=== PATIENT | male | born 1955 | race Caucasian/White ===

== ENCOUNTER 2018-09-26 05:13 | Inpatient (IN) | payer OTHER ==
[~2018-09-26] VITALS: Ht 152.4 cm; Wt 45.4 kg
[2018-09-26 05:13] VITALS: BP 200/106
--- NOTE | 2018-09-26 05:13 | NUR ---
TRANSFERED FROM [facility] TO BED 9.
--- NOTE | 2018-09-26 05:13 | NUR ---
CELIA FROM [facility] WHILE IN BATHROOM DURING SYNCOPAL EPISODE AT 0430. PT REPORTED TO PARAMEDICS THAT HE HIT HIS HEAD. PT IS A/O X3. PT ANSWERS QUESTIONS BUT IS DIFFICULT TO UNDERSTAND AT TIMES. -- SMALL CONTUSION NOTED TO POSTERIOR SKULL. SKIN INTACT. -- PITTING PEDAL EDEMA +3 BILAT NOTED. -- ABDOMINAL DISTENTION NOTED. -- FISTUALA TO R ARM, 20 G TO LFA; C/D/I, PATENT, NO REDNESS. -- LIDOCAINE PATCH ON LEFT SHOULDER. PMH: SEIZURES, HTN, ESRD.
--- NOTE | 2018-09-26 05:37 | NUR ---
PT TO CT VIA MING BY [facility].
[2018-09-26] MEDS ORDERED: hydrALAZINE 20 MG/ML VIAL IVP ONE (06:00)
[2018-09-26] MEDS ORDERED: ONDA4TAB PO (06:07)
[2018-09-26] MEDS ORDERED: HYDR-5122 PO (06:07)
[2018-09-26] MEDS ORDERED: SUCR1TAB35 PO (06:07)
[2018-09-26] MEDS ORDERED: PRON INH (06:07)
[2018-09-26] MEDS ORDERED: HYDR100T79 PO (06:07)
[2018-09-26] MEDS ORDERED: ACET-2619 PO (06:07)
[2018-09-26] MEDS ORDERED: ISOS30TE68 PO (06:07)
[2018-09-26] MEDS ORDERED: FLEPED RC (06:07)
[2018-09-26] MEDS ORDERED: QUET100T PO (06:07)
[2018-09-26] MEDS ORDERED: BUDE0.5S NEB (06:07)
[2018-09-26] MEDS ORDERED: SEVE800T6 PO (06:07)
[2018-09-26] MEDS ORDERED: METO25TE2 PO (06:07)
[2018-09-26] MEDS ORDERED: PANT40EC PO (06:07)
[2018-09-26] MEDS ORDERED: SERT50TA PO (06:07)
[2018-09-26] MEDS ORDERED: CLON0.2T43 PO (06:07)
[2018-09-26] MEDS ORDERED: MSCON15 PO (06:07)
[2018-09-26] MEDS ORDERED: BEN50 PO (06:07)
[2018-09-26] MEDS ORDERED: LEVO0.0211 PO (06:07)
[2018-09-26] MEDS ORDERED: MAGN400S60 PO (06:07)
[2018-09-26] MEDS ORDERED: FERR325E14 PO (06:07)
[2018-09-26] MEDS ORDERED: PHEN100C14 PO (06:07)
[2018-09-26] MEDS ORDERED: BISA-213 RC (06:07)
[2018-09-26] MEDS ORDERED: SEN30 PO (06:07)
--- NOTE | 2018-09-26 06:20 | NUR ---
LABS DRAWN AT BEDSIDE BY RN
[2018-09-26 06:39] LABS: BASOPHILS % (AUTO) 0.3 % (0.0-2.0); EOSINOPHILS # (AUTO) 0.1 K/uL (0-0.4); EOSINOPHILS % (AUTO) 0.8 % (0.0-4.0); HEMATOCRIT 26.4 % (36-52); HEMOGLOBIN 8.8 g/dL (12.0-18.0); LYMPHOCYTES # (AUTO) 0.5 K/uL (2.0-11.5); LYMPHOCYTES % (AUTO) 6.8 % (20.5-51.1); MEAN CORPUSCULAR HEMOGLOBIN 32 pg (27-31); MEAN CORPUSCULAR HGB CONC 33 g/dL (33-37); MEAN CORPUSCULAR VOLUME 97.1 fL (80-94); MONOCYTES # (AUTO) 0.4 K/uL (0.8-1.0); MONOCYTES % (AUTO) 6.5 % (1.7-9.3); NEUTROPHILS # (AUTO) 5.8 K/uL (1.8-7.7); NEUTROPHILS % (AUTO) 85.6 % (42.2-75.2); PLATELET COUNT (AUTO) 356 K/uL (140-450); RED BLOOD CELL COUNT(AUTO) 2.72 MIL/uL (4.20-6.10); RED CELL DISTRIBUTION WIDTH 19.1 % (11.6-13.7); WHITE BLOOD COUNT (AUTO) 6.7 K/uL (4.8-10.8)
--- NOTE | 2018-09-26 06:46 | NUR ---
PT UNABLE TO VOID AT THIS TIME. ERMD NOTIFIED.
--- NOTE | 2018-09-26 07:05 | NUR ---
RECEIVED REPORT FROM HERNANDEZ LAUREANO
[2018-09-26 07:44] LABS: ANION GAP 18.2 (8-16); CARBON DIOXIDE 28.8 mmol/L (21-32)
[2018-09-26 07:45] LABS: CREATININE 6.3 mg/dL (0.7-1.3); TOTAL BILIRUBIN 0.5 mg/dL (0.0-1.0)
[2018-09-26 07:46] LABS: ALBUMIN 2.2 g/dL (3.4-5.0)
[2018-09-26] MEDS ORDERED: ACETAMINOPHEN 325 MG TAB PO ONE (08:10)
--- NOTE | 2018-09-26 08:28 | NUR ---
at bedside; pt will be admitted for dialysis. [facility] can not take pt in today 2 to booked appts.
[2018-09-26] MEDS ORDERED: ALBUTEROL 0.083% 2.5 MG/3 ML NEBU IH PRN (08:35)
[2018-09-26] MEDS ORDERED: diphenhydrAMINE 50 MG CAP PO SCH (08:35)
[2018-09-26] MEDS ORDERED: MAGNESIUM HYDROXIDE 2400 MG/30 ML UDC PO SCH (08:35)
[2018-09-26] MEDS ORDERED: ONDANSETRON 4 MG TAB PO PRN (08:35)
[2018-09-26] MEDS ORDERED: ACETAMINOPHEN 325 MG TAB PO SCH ×2 (08:35)
[2018-09-26] MEDS ORDERED: BISACODYL 10 MG SUPP RC PRN (08:35)
[2018-09-26] MEDS ORDERED: ALBUTEROL 0.083% 2.5 MG/3 ML NEBU INH SCH (08:35)
[2018-09-26] MEDS ORDERED: ACETAMINOPHEN 325 MG TAB PO PRN (08:35)
[2018-09-26] MEDS ORDERED: ONDANSETRON 4 MG/2 ML VIAL IVP PRN (08:35)
[2018-09-26] MEDS ORDERED: HYDROcodone/APAP 5/325 MG 1 TAB TAB PO PRN (08:35)
[2018-09-26] MEDS ORDERED: LORazepam 2 MG/ML VIAL IVP PRN (08:35)
[2018-09-26] MEDS ORDERED: SODIUM PHOSPHATE 118 ML ENEM RC PRN (08:35)
[2018-09-26] MEDS ORDERED: HYDROcodone/APAP 5/325 MG 1 TAB TAB PO SCH (08:35)
--- NOTE | 2018-09-26 10:12 | NUR ---
PT TAKEN TO TELE FLOOR BY RNS BRIAN AND TANIA
--- NOTE | 2018-09-26 10:20 | NUR ---
REPORT GIVEN TO SRIDEVI CERRATO
[2018-09-26 10:25] VITALS: BP 165/94
--- NOTE | 2018-09-26 10:30 | NUR ---
PT ARRIVED ON UNIT FROM ED. RECEIVED HAND OFF REPORT FROM ED NURSE. PERFORMED PT ASSESSMENT. PT IS RESTING IN BED WITH ALL SAFETY MEASURES IN PLACE
[2018-09-26] MEDS ORDERED: CINACALCET 30 MG TAB PO SCH (10:35)
[2018-09-26] MEDS ORDERED: BUDESONIDE 0.5 MG/2 ML NEBU INH SCH (10:35)
[2018-09-26] MEDS ORDERED: cloNIDine 0.1 MG TAB PO SCH (10:36)
[2018-09-26] MEDS ORDERED: FERROUS SULFATE 325 MG TABEC PO SCH (10:36)
[2018-09-26] MEDS ORDERED: METOPROLOL SUCCINATE 50 MG TABER PO SCH (10:39)
[2018-09-26] MEDS ORDERED: hydrALAZINE 25 MG TAB PO SCH (10:41)
[2018-09-26] MEDS ORDERED: SERTRALINE 50 MG TAB PO SCH (10:50)
[2018-09-26] MEDS ORDERED: SEVELAMER CARBONATE 800 MG TAB PO SCH (10:50)
[2018-09-26] MEDS ORDERED: QUEtiapine FUMARATE 100 MG TAB PO SCH (10:51)
[2018-09-26] MEDS ORDERED: LEVOTHYROXINE 0.025 MG TAB PO SCH (10:52)
[2018-09-26] MEDS ORDERED: PANTOPRAZOLE 40 MG TABEC PO SCH (10:54)
[2018-09-26] MEDS ORDERED: ISOSORBIDE MONONITRATE 30 MG TABER PO SCH (10:56)
--- NOTE | 2018-09-26 11:08 | NUR ---
PT ORIENTED TO ROOM AND FLOOR, POC REVIEWD, FALL PRECAUTION AND SZ PRECAUTION INITIATED. PT ORIENTED TO HIMSELF AND PLACE, BUT UNABLE TO ANSWER TIME OR SITUATION, SPEAKING OF UNRELATED SITUATIONS, APPEARS CONFUSED. PT WITH RIGHT FEMORAL MOHIT CATH, DRESSING INTACT, RIGHT UPPER ARM WITH DIALYSIS FISTULA BUT PT STATES IT NO LONGER WORKS, PINK BAND PLACED, LEFT FA WITH 20G IV FLUSHES WELL, SITE WNL.
[2018-09-26 11:26] VITALS: BP 161/100
[2018-09-26 11:42] LABS: APPEARANCE,URINE CLEAR (CLEAR); COLOR,URINE YELLOW (YELLOW)
[2018-09-26 11:43] LABS: BILIRUBIN,URINE NEGATIVE (NEGATIVE); BLOOD, URINE TRACE (NEGATIVE); PH,URINE 8.5 (5.0-9.0); UGLUCOSE TRACE (NEGATIVE)
[2018-09-26 11:44] LABS: LEUKOCYTE ESTERASE ,URINE NEGATIVE (NEGATIVE); NITRITE, URINE NEGATIVE (NEGATIVE); RBC,URINE 0-5 /HPF (0-5); WBC,URINE 0-5 /HPF (0-5)
[2018-09-26 12:00] VITALS: BP 161/100
--- NOTE | 2018-09-26 12:08 | NUR ---
PT RECIVIGN DIALYSIS, SLEEPING QUIETLY IN NAD, RESP EVEN UNLABORED.
[2018-09-26] MEDS: SEVELAMER CARBONATE 800 MG TAB PO SCH ×2 (12:15→17:14)
[2018-09-26 12:49] LABS: BARBITURATE, URINE NEG ng/ml (NEG <=200); BENZODIAZEPINE, URINE NEG ng/mL (NEG <=200); CANNABINOID, URINE NE ng/mL (NEG <=50); COCAINE, URINE NEG ng/mL (NEG <=300); OPIATE, URINE POS ng/mL (NEG <=2000); PHENCYCLIDINE SCREEN,URINE NEG ng/mL (NEG <=25)
[2018-09-26] MEDS: CINACALCET 30 MG TAB PO SCH ×2 (14:20→17:15)
--- NOTE | 2018-09-26 15:13 | NUR ---
PT RECEIVING DIALYSIS. DIALYSIS NURSE AT BEDSIDE WITH PT. PT HAS NO SIGNS OF DISTRESS
[2018-09-26 16:00] VITALS: BP 111/65
--- NOTE | 2018-09-26 16:05 | NUR ---
DIALYSIS FINISHED. 2.6L REMOVED PER DIALYSIS NURSE.
[2018-09-26] MEDS: AZITHROMYCIN 500 MG in DEXTROSE 5% 250 ML IV SCH (19:13)
--- NOTE | 2018-09-26 19:20 | NUR ---
HAND OF REPORT GIVEN TO ACUTE CARE NURSING ASSISTANT NURSE. IV ANTIBIOTICS HANGING AND RUNNING. JUST REPOSITIONED PT IN BED. IV INTACT PATENT AND INFUSING WELL.
--- NOTE | 2018-09-26 19:21 | NUR ---
REPORT RECEIVED FROM AM NURSE AT BEDSIDE. PT IN STABLE CONDITION. AAOX1. INTRODUCED SELF TO PT. BOARD UPDATED. NO COMPLAINTS OF PAIN. NO SOB ON 2L O2 VIA NC. AFEBRILE@98.2 DEGREES. IV SITE L FA 20G SL PATENT AND INTACT. PT HAS A RIGHT FEMORAL MOHIT CATH AND RIGHT AV SHUNT. RIGHT AV SHUNT NOT IN USE AT THIS TIME. BED LOCKED IN LOW POSITION. CALL BOWEN WITHIN REACH. SAFETY PRECAUTIONS IN PLACE. ALL NEEDS MET AT THIS TIME.
[2018-09-26 20:00] VITALS: BP 133/78
[2018-09-26] MEDS: SUCRALFATE 1 GM TAB PO SCH (20:07)
[2018-09-26] MEDS: cloNIDine 0.1 MG TAB PO SCH (20:07)
[2018-09-26] MEDS: MORPHINE TAB ER 15 MG TABER PO SCH (20:07)
[2018-09-26] MEDS: PHENYTOIN 100 MG CAPER PO SCH (20:08)
[2018-09-26] MEDS: METOPROLOL SUCCINATE 50 MG TABER PO SCH (20:08)
[2018-09-26] MEDS: hydrALAZINE 25 MG TAB PO SCH (20:08)
--- NOTE | 2018-09-26 20:08 | NUR ---
APRESOLINE, CARAFATE, CATAPRES, DILANTIN, FERROUS SULFATE, MS-CONTIN, AND TOPROLOL GIVEN PO. HEPARIN GIVEN SUBQ. PT TOLERATED WELL.
[2018-09-26] MEDS: FERROUS SULFATE 325 MG TABEC PO SCH (20:14)
[2018-09-26] MEDS ORDERED: MORPHINE TAB ER 15 MG TABER PO SCH (21:00)
[2018-09-26] MEDS: BUDESONIDE 0.5 MG/2 ML NEBU INH SCH (21:31)
--- NOTE | 2018-09-26 22:10 | NUR ---
PT SLEEPING IN BED. NO S/S OF DISTRESS NOTED. WILL CONTINUE TO MONITOR.
[2018-09-27] VITALS (8 sets, daily range): BP systolic 116–136; BP diastolic 61–79
--- NOTE | 2018-09-27 01:10 | NUR ---
PT SLEEPING COMFORTABLY IN BED. NO S/S OF DISTRESS NOTED. CHEST EXPANSION VISIBLE. WILL CONTINUE TO MONITOR.
--- NOTE | 2018-09-27 03:05 | NUR ---
NICOTINE PATCH APPLIED TO RIGHT UPPER ARM.
--- NOTE | 2018-09-27 04:25 | NUR ---
PT HAD A HUGE BM. PT STOOD UP AND WENT ALL OVER THE FLOOR. EVS CALLED IN TO CLEAN.
--- NOTE | 2018-09-27 05:44 | NUR ---
SYNTHROID AND PANTOPRAZOLE GIVEN PO. PT TOLERATED WELL.
[2018-09-27] MEDS ORDERED: PANTOPRAZOLE 40 MG TABEC PO SCH (06:30)
[2018-09-27] MEDS ORDERED: LEVOTHYROXINE 0.025 MG TAB PO SCH (06:30)
--- NOTE | 2018-09-27 07:05 | NUR ---
REPORT GIVEN TO AM NURSE AT BEDSIDE. PT IN STABLE CONDITION.
--- NOTE | 2018-09-27 07:08 | NUR ---
RECEIVED BEDSIDE REPORT FROM LEGAL PROCESS SPECIALIST NURSE. PT AWAKE AND APPEARS IN NO APPARENT DISTRESS.
[2018-09-27 07:10] LABS: BASOPHILS # (AUTO) 0.1 K/uL (0.00-0.22); BASOPHILS % (AUTO) 2.3 % (0.0-2.0); EOSINOPHILS % (AUTO) 0.3 % (0.0-4.0); HEMATOCRIT 24.5 % (36-52); HEMOGLOBIN 8.1 g/dL (12.0-18.0); LYMPHOCYTES # (AUTO) 0.6 K/uL (2.0-11.5); MEAN CORPUSCULAR HEMOGLOBIN 33 pg (27-31); MEAN CORPUSCULAR HGB CONC 33 g/dL (33-37); MEAN CORPUSCULAR VOLUME 98.2 fL (80-94); MONOCYTES # (AUTO) 0.4 K/uL (0.8-1.0); MONOCYTES % (AUTO) 7.2 % (1.7-9.3); NEUTROPHILS # (AUTO) 4.7 K/uL (1.8-7.7); NEUTROPHILS % (AUTO) 80.2 % (42.2-75.2); PLATELET COUNT (AUTO) 286 K/uL (140-450); RED BLOOD CELL COUNT(AUTO) 2.49 MIL/uL (4.20-6.10); RED CELL DISTRIBUTION WIDTH 19.4 % (11.6-13.7); WHITE BLOOD COUNT (AUTO) 5.8 K/uL (4.8-10.8)
[2018-09-27] MEDS: BUDESONIDE 0.5 MG/2 ML NEBU INH SCH (07:10)
[2018-09-27 07:35] LABS: ANION GAP 16.7 (8-16); CARBON DIOXIDE 24.1 mmol/L (21-32); POTASSIUM 3.8 mmol/L (3.5-5.1)
[2018-09-27 07:40] LABS: CREATININE 4.5 mg/dL (0.7-1.3)
--- NOTE | 2018-09-27 08:01 | NUR ---
CHECKED PTS VITALS. REPOSITIONED PT AND ASSISTED WITH BREAKFAST FOR PT. SEIZURE PRECAUTION PADS IN PLACE. FALL PRECAUTION PROTOCOL IN PLACE. CALL LIGHT WITHIN REACH. CLIENT APPEARS TO BE IN NO DISTRESS.
--- NOTE | 2018-09-27 08:55 | NUR ---
PT PRESSED CALLED TO ASK TO BE CHANGED, LARGE BM SOFT BROWN, PERICARE PROVIDED, BED BATH GIVEN, LINEN AND GOWN CHANGED, POSITION CHANGED, PT AWAKE ALERT, CONVERSING WITHOUT CONFUSION. ALL SAFETY MEASURES IN PLACE, WILL CONTINUE TO MONITOR.
[2018-09-27] MEDS: SEVELAMER CARBONATE 800 MG TAB PO SCH ×3 (08:59→17:19)
[2018-09-27] MEDS ORDERED: ISOSORBIDE MONONITRATE 30 MG TABER PO SCH (09:00)
[2018-09-27] MEDS: FERROUS SULFATE 325 MG TABEC PO SCH ×2 (09:00→20:17)
[2018-09-27] MEDS ORDERED: ASPIRIN 81 MG TAB.CHEW PO SCH (09:00)
[2018-09-27] MEDS ORDERED: CINACALCET 30 MG TAB PO SCH (09:00)
[2018-09-27] MEDS ORDERED: QUEtiapine FUMARATE 100 MG TAB PO SCH (09:00)
[2018-09-27] MEDS ORDERED: NICOTINE TRANSD SYS 21 MG/24 HR PATCH TD SCH (09:00)
[2018-09-27] MEDS ORDERED: SERTRALINE 50 MG TAB PO SCH (09:00)
[2018-09-27] MEDS: METOPROLOL SUCCINATE 50 MG TABER PO SCH ×2 (09:01→20:17)
[2018-09-27] MEDS: hydrALAZINE 25 MG TAB PO SCH ×2 (09:03→20:15)
[2018-09-27] MEDS: cloNIDine 0.1 MG TAB PO SCH ×2 (09:04→20:17)
[2018-09-27] MEDS: MORPHINE TAB ER 15 MG TABER PO SCH ×2 (09:15→20:18)
--- NOTE | 2018-09-27 09:52 | NUR ---
PATIENT HAS BEEN SCREENED AND CATEGORIZED MODERATE NUTRITION RISK. PATIENT WILL BE SEEN WITHIN 3-5 DAYS OF ADMISSION. 09/29/18-10/01/[address]
--- NOTE | 2018-09-27 10:45 | NUR ---
FREQUENT ROUNDING ON CLIENT. CLIENT ASLEEP IN BED. REPOSITIONED PT SO LEGS ARE NOT DANGLING OVER BED. PLACED 1 LOWER BED RAIL UP TO KEEP PT FROM DANGLING LEGS OVER BED
--- NOTE | 2018-09-27 12:45 | NUR ---
REPOSITIONED CLIENT. ASSESSED VITALS AND ASSISTED THE PT WITH LUNCH. CALLED FNS FOR SANDWICH FOR PT BECAUSE THE MEAL THEY BROUGHT THE PT DIDNT LIKE
--- NOTE | 2018-09-27 13:10 | NUR ---
SPOKE WITH ASHLEY ALVAREZ FROM PTS BOARD AND CARE. NURSE STATED HIS HEMODIALYSIS DR IS DR. JARAMILLO. NURSE ALSO STATED THAT THE PTS DIALYSIS SCHEDULE IS [id number].
--- NOTE | 2018-09-27 14:13 | NUR ---
ROUNDED ON PT. PT AWAKE IN BED. ASSISTED PT WITH REPOSITION AND HELPED EAT LUNCH
--- NOTE | 2018-09-27 15:02 | NUR ---
CALLED [facility] SPOKE WITH ASHLEY AND NOTIFIED THAT PATIENT HAS D/C ORDER . PATIENT CAN GO TO ROOM 120A AND ARRANGED TRANSPORT WITH [facility] PICKER TIME 1900.
--- NOTE | 2018-09-27 15:21 | NUR ---
CALLED [facility] SPOKE WITH [employer] FOR AUTH# PATIENT CAN USE [facility] AUTH # [id number]
--- NOTE | 2018-09-27 16:00 | NUR ---
AWAITING TRANSPORTATION [facility] PROGRAM COORDINATOR AT 1900 BY DAHIANA.
--- NOTE | 2018-09-27 16:00 | NUR ---
CALLED [facility] SALGUERO AND GAVE REPORT TO NURSE.
--- NOTE | 2018-09-27 16:05 | NUR ---
ROUNDED ON PATIENT. REPOSITIONED PT. INFORMED HIM OF THE DISCHARGE AND WHEN HE WILL BE GOING BACK TO [facility]. PT IS OK WITH THE PLAN.
--- NOTE | 2018-09-27 16:15 | NUR ---
PT BROTHER CALLED TO IN[facility]
--- NOTE | 2018-09-27 16:45 | NUR ---
ROUNDED ON PT. GAVE PT ICE CHIPS. PT IS HAPPY IN BED
--- NOTE | 2018-09-27 18:30 | NUR ---
ROUNDED ON PT. PT IS AWAKE IN BED. PT REQUEST THAT HIS SLING BE PLACED BACK ON. PLACED PTS SLING BACK ON HIM
[2018-09-27] MEDS: AZITHROMYCIN 500 MG in DEXTROSE 5% 250 ML IV SCH (19:09)
--- NOTE | 2018-09-27 19:40 | NUR ---
REPORT GIVEN AT PT BEDSIDE TO VP ACCOUNT DIRECTOR NURSE. PT AWAKE IN BED PT APPEARED IN NO APPARENT DISTRESS
--- NOTE | 2018-09-27 19:40 | NUR ---
RECEIVED REPORT AT BEDSIDE FORM GLENN LAUREANO AND BLOSSOM LAUREANO FOR CONTINUITY OF CARE, PT IN STABLE CONDITION.
--- NOTE | 2018-09-27 19:45 | NUR ---
PT SITTING UP IN BED WITH 1 AND 1/2 LITERS 02 VIA N/C. ALL FALLS AND SEIZURE PRECAUTIONS IN PLACE. V/S FOLLOWS: T 98.6 P 88 R 18 B/P 120/79. PT REQUESTING PAIN MEDICATION.
--- NOTE | 2018-09-27 19:53 | NUR ---
RECEIVED UPDATE FROM GLENN LAUREANO THAT [facility] IS ON THIER WAY.
--- NOTE | 2018-09-27 20:15 | NUR ---
PT GIVEN DUE MEDS INCLUDING MS CONTIN. PT DID NOT RECEIVE NEB TREATMENT DUE TO [facility] ARRIVING FOR TRANSPORT.
[2018-09-27] MEDS: SUCRALFATE 1 GM TAB PO SCH (20:16)
[2018-09-27] MEDS: PHENYTOIN 100 MG CAPER PO SCH (20:17)
--- NOTE | 2018-09-27 20:30 | NUR ---
IV SITE DISCONTINUED WELL TELEMONITORING. PT STABLE IN NO S/S OF PAIN OR DISTRESS NOTED. [facility] PREPARING PT FOR TRANSPORT.
--- NOTE | 2018-09-27 20:40 | NUR ---
[email or web address] BELONGING IN PT POSSESSION. ARM BAND CUT OFF AND PT PERSONAL WHEEL CHAIR TRANSPORTED WITH PT.
[2018-09-29] MEDS ORDERED: EPOETIN ALFA 10,000 UNITS/ML VIAL SUBQ SCH (09:00)
== END 2018-09-27 20:45 | DRG 139 ==
LOC: MED 05:13 → MTU 08:32 → OBSVTOIN 15:39
PROVIDERS: ADMIT Hospitalist; ATTEND Hospitalist
PROC: 5A1D70Z Performance of Urinary Filtration, Intermittent, Less than 6 Hours Per Day (ICD-10-PCS; principal; 2018-09-26)
DX: J18.9 Pneumonia, unspecified organism (principal); I12.0 Hypertensive chronic kidney disease with stage 5 chronic kidney disease or end stage renal disease; S09.90XA Unspecified injury of head, initial encounter; E44.0 Moderate protein-calorie malnutrition; D63.8 Anemia in other chronic diseases classified elsewhere; N18.6 End stage renal disease; G40.909 Epilepsy, unspecified, not intractable, without status epilepticus; K21.9 Gastro-esophageal reflux disease without esophagitis; F32.9 Major depressive disorder, single episode, unspecified; F41.9 Anxiety disorder, unspecified; W18.30XA Fall on same level, unspecified, initial encounter; Z99.2 Dependence on renal dialysis; Z87.891 Personal history of nicotine dependence; Y93.89 Activity, other specified; Y92.091 Bathroom in other non-institutional residence as the place of occurrence of the external cause; Y99.8 Other external cause status; Z88.5 Allergy status to narcotic agent; Z79.899 Other long term (current) drug therapy; Z87.81 Personal history of (healed) traumatic fracture
CPT/HCPCS: 96374; 99285; G0378; 36415; 70450; 71045; 73030; 80048; 80053; 80305; 81001; 82948; 83880; 84484; 85025; 87081; 90935; 93005; 94640; J0360; J0456; J0696; J1644; J7030; J7060; J7626; Q0092

== ENCOUNTER 2018-10-22 06:35 | Inpatient (IN) | payer OTHER ==
[~2018-10-22] VITALS: Ht 162.6 cm; Wt 57.2 kg
[~2018-10-22 06:35] MED LIST: ACET-2619 PO; BEN50 PO; BISA-213 RC; BUDE0.5S NEB; CLON0.2T43 PO; FERR325E14 PO; FLEPED RC; HYDR-5122 PO; HYDR100T79 PO; ISOS30TE68 PO; LEVO0.0211 PO; MAGN400S60 PO; METO25TE2 PO; MSCON15 PO; ONDA4TAB PO; PANT40EC PO; PHEN100C14 PO; PRON INH; QUET100T PO; SEN30 PO; SERT50TA PO; SEVE800T6 PO; SUCR1TAB35 PO
[2018-10-22 06:43] VITALS: BP 177/79
--- NOTE | 2018-10-22 06:43 | NUR ---
[facility]. PT TANSFERED FROM [facility] TO BED 10.
--- NOTE | 2018-10-22 06:43 | NUR ---
PT PRESENTS TO ED WITH C/O OF LEFT SHOUDLER PAIN AFTER FALLING OUT OF HIS WHEEL CHAIR NEAR HIS DIALASYS CENTER. HIS APPOINTMENT WAS AT 04:00 BUT DID NOT ATTEND. FALL UNWITNESSED. DENIES HITTING HEAD. ALERT TO NAME, PLACE, AND EVENT. CMS INTACT TO BILAT UPPER EXTREMITIES. NO DEFORMITIES, NO REDNESS, NO BRUISING. 6/10 PAIN TO LEFT SHOULDER. HR FLUCTUATING BETWEEN 40'S AND 70'S. UNABLE TO OBTAIN O2SAT BUT NO RESPIRATORY DISTRESS NOTED. DR BUSTAMANTE NOTIFED AND AT BEDSIDE FOR EVALUATION. X2 SIDE RAILS UP. HOB ELEVATED. CONTINUE TO MONITOR. Addendum: 10/22/18 at 0720 by [employer] PT PRESENTS TO ED WITH C/O OF LEFT SHOUDLER PAIN AFTER FALLING OUT OF HIS WHEEL CHAIR NEAR HIS DIALASYS CENTER. HIS APPOINTMENT WAS AT 04:00 BUT DID NOT ATTEND. FALL UNWITNESSED. DENIES HITTING HEAD. ALERT TO NAME, PLACE, AND EVENT. CMS INTACT TO BILAT UPPER EXTREMITIES. NO DEFORMITIES, NO REDNESS, NO BRUISING. 6/10 PAIN TO LEFT SHOULDER. HR FLUCTUATING BETWEEN 40'S AND 70'S. O2 SAT 92% COARSE LUNGS SOUNDS HEARD BILAT. DR BUSTAMANTE NOTIFED AND AT BEDSIDE FOR EVALUATION. X2 SIDE RAILS UP. HOB ELEVATED. CONTINUE TO MONITOR.
--- NOTE | 2018-10-22 07:09 | NUR ---
EKG PERFORMED AT BEDSIDE. PT COVERED IN GOWN AND BLANKET DURING PROCEDURE
--- NOTE | 2018-10-22 07:30 | NUR ---
LAB AT BEDSIDE
--- NOTE | 2018-10-22 07:30 | NUR ---
RAD AT BEDSIDE
--- NOTE | 2018-10-22 07:30 | NUR ---
RECEIVED REPORT FROM ROLANDO LAUREANO.
--- NOTE | 2018-10-22 07:32 | NUR ---
PATIENT A/O, PT RESTING COMFORTABLY, CALM. BREATHING IS UNLABORED, PAIN IS STILL 6/10. TOLERATING PROCEDURES WELL.
[2018-10-22 08:07] LABS: APPEARANCE,URINE CLEAR (CLEAR); BILIRUBIN,URINE NEGATIVE (NEGATIVE); BLOOD, URINE 1+ (NEGATIVE); COLOR,URINE YELLOW (YELLOW); LEUKOCYTE ESTERASE ,URINE NEGATIVE (NEGATIVE); NITRITE, URINE NEGATIVE (NEGATIVE); UGLUCOSE NEGATIVE (NEGATIVE)
[2018-10-22 08:15] LABS: BARBITURATE, URINE NEG. ng/ml (NEG <=200); BENZODIAZEPINE, URINE NEG. ng/mL (NEG <=200); CANNABINOID, URINE NEG. ng/mL (NEG <=50); COCAINE, URINE NEG. ng/mL (NEG <=300); OPIATE, URINE POS. ng/mL (NEG <=2000); PHENCYCLIDINE SCREEN,URINE NEG. ng/mL (NEG <=25)
[2018-10-22 08:24] LABS: BASOPHILS % (AUTO) 0.5 % (0.0-2.0); EOSINOPHILS % (AUTO) 0.1 % (0.0-4.0); HEMATOCRIT 21.3 % (36-52); HEMOGLOBIN 7.1 g/dL (12.0-18.0); LYMPHOCYTES # (AUTO) 0.5 K/uL (2.0-11.5); MEAN CORPUSCULAR HEMOGLOBIN 32 pg (27-31); MEAN CORPUSCULAR HGB CONC 34 g/dL (33-37); MEAN CORPUSCULAR VOLUME 94.9 fL (80-94); MONOCYTES # (AUTO) 0.4 K/uL (0.8-1.0); MONOCYTES % (AUTO) 7.9 % (1.7-9.3); NEUTROPHILS # (AUTO) 4.3 K/uL (1.8-7.7); NEUTROPHILS % (AUTO) 81.5 % (42.2-75.2); PLATELET COUNT (AUTO) 205 K/uL (140-450); RED BLOOD CELL COUNT(AUTO) 2.24 MIL/uL (4.20-6.10); WHITE BLOOD COUNT (AUTO) 5.3 K/uL (4.8-10.8)
[2018-10-22 08:49] LABS: ALBUMIN 2.7 g/dL (3.4-5.0); ANION GAP 23.8 (8-16); ASPARTATE AMINOTRANSFERASE 43 U/L (15-37); CARBON DIOXIDE 23.2 mmol/L (21-32); CHLORIDE 97 mmol/L (98-107); GFR ARICAN-AMERICAN 9 mL/min (>90); GLUCOSE 82 mg/dL (74-106); SODIUM SERUM 137 mmol/L (136-145); TOTAL BILIRUBIN 0.5 mg/dL (0.0-1.0)
[2018-10-22 08:50] LABS: WBC,URINE 0-5 /HPF (0-5)
[2018-10-22 09:07] LABS: CREATININE 8.1 mg/dL (0.7-1.3); UREA NITROGEN, BLOOD 147 mg/dL (7-18)
--- NOTE | 2018-10-22 09:07 | NUR ---
LAB CRITICAL: K+ 7, BUN 147, CREATININE 8.1
[2018-10-22] MEDS ORDERED: DEXTROSE 50% 50 ML SYR IVP ONE (09:15)
[2018-10-22] MEDS ORDERED: SODIUM BICARBONATE 8.4% PFS 50 MEQ/50 ML SYR IVP ONE (09:15)
[2018-10-22] MEDS ORDERED: SODIUM POLYSTYRENE 15 GM/60 ML UDBTL PO ONE (09:15)
[2018-10-22] MEDS ORDERED: INSULIN REGULAR, HUMAN 100 UNIT/ML VIAL IV ONE (09:15)
--- NOTE | 2018-10-22 10:00 | NUR ---
REPORT GIVEN TO NORA LAUREANO.
--- NOTE | 2018-10-22 10:00 | NUR ---
Patient will be admitted to care of DR PEARL. Admited to TELE FLOOR. Will go to room 114. Belongings list completed. Report to NORA LAUREANO.
--- NOTE | 2018-10-22 10:20 | NUR ---
GOT BEDSIDE REPORT FROM ER NURSE. PATIENT ON TELE MONITOR AND STANDARD PRECAUTIONS IN PLACE. PATIENT AAOX2 TO PERSON AND PLACE. SACRAL REDNESS AND LUE DRY SCAB CHAPARRITA. NO IV PRESENT. R GROIN PORT A CATH FOR DIALYSIS AND RUE DIALYSIS. R GROIN USED FOR DIALYSIS. SIGNS POSTED NO VENIPUNCTURE/BP ON R ARM. FALL RISK PROTOCOL IN PLACE. BED IN LOW POSITION, CALL LIGHT WITHIN REACH, SIDE RAILS X2 UP
--- NOTE | 2018-10-22 10:30 | NUR ---
WAS UNABLE TO GIVE MEDS FROM POOR IV ACCESS, MS DRIVER AWARE, PICC LINE NURSE CALLED. BERNIE LAUREANO AWARE, MS TO CONTINUWE MEDS. MEDS: SODIUM BICARB, 50% DEXTROSE.
--- NOTE | 2018-10-22 10:30 | NUR ---
Michael [email or web address] a in ED - 10/22/18 at 1140 by [facility] WAS UNABLE TO GIVE MEDS FROM POOR IV ACCESS, MS DRIVER AWARE, PICC LINE NURSE CALLED. BERNIE LAUREANO AWARE, MS TO CONTINUWE MEDS. MEDS: SODIUM BICARB, 5% DEXTROSE.
[2018-10-22] MEDS ORDERED: MAGNESIUM HYDROXIDE 2400 MG/30 ML UDC PO PRN (11:15)
[2018-10-22] MEDS ORDERED: ONDANSETRON 4 MG TAB PO PRN (11:15)
[2018-10-22] MEDS ORDERED: NON-FORMULARY ITEM (Bisacodyl (Dulcolax) 10 MG) RC SCH (11:15)
[2018-10-22] MEDS ORDERED: ACETAMINOPHEN 325 MG TAB PO PRN (11:15)
[2018-10-22] MEDS ORDERED: HYDROcodone/APAP 5/325 MG 1 TAB TAB PO PRN (11:15)
[2018-10-22] MEDS ORDERED: ALBUTEROL 0.083% 2.5 MG/3 ML NEBU INH PRN (11:15)
[2018-10-22] MEDS ORDERED: BISACODYL 10 MG SUPP RC PRN (11:40)
[2018-10-22] MEDS: SEVELAMER CARBONATE 800 MG TAB PO SCH ×2 (12:00→16:29)
[2018-10-22 12:48] VITALS: BP 166/91
[2018-10-22] MEDS: CINACALCET 30 MG TAB PO SCH ×2 (13:00→16:30)
[2018-10-22] MEDS ORDERED: DEXTROSE 50% 50 ML SYR IVP SCH (13:30)
--- NOTE | 2018-10-22 13:38 | NUR ---
D50 GIVEN THRU DIALYSIS PORT R GROIN
--- NOTE | 2018-10-22 13:38 | NUR ---
HELD PO MEDS DUE TO PATIENT'S CONDITION, CONFUSED AND SLEEPING, CURRENTLY ON DIALYSIS
[2018-10-22 16:00] VITALS: BP 166/84
[2018-10-22] MEDS: FERROUS SULFATE 325 MG TABEC PO SCH (16:30)
--- NOTE | 2018-10-22 16:33 | NUR ---
ADMINISTERED SCHEDULED MEDS. PATIENT TOLERATED WELL, ON 2 L O2 NC, NO DISTRESS NOTED
[2018-10-22 17:15] LABS: PROTHROMBIN TIME 11.9 secs (10.8-13.4)
--- NOTE | 2018-10-22 18:35 | NUR ---
JOIE PICC LINE NURSE WANTED SALSA DANCE INSTRUCTOR CLEARANCE FOR PICC LINE INSERTION. SPOKE TO Nigel LOPEZ REGARDING PICC LINE INSERTION. TOLD HIM THAT PATIENT HAD SIGNED CONSENT FORM FOR PICC LINE, BUT DR STATED MAY USE DIALYSIS CATHETER FOR EMERGENCIES OR ANY IV ACCESS, AND NO NEED FOR PICC LINE AT THIS TIME. CHARGE NURSE NORA ANNA Addendum: 10/22/18 at 185 by Joi Rubi RN JOIE PICC LINE NURSE PHONE # [phone] Addendum: 10/22/18 at 1919 by Joi Rubi RN JOIE PICC LINE NURSE AWARE
--- NOTE | 2018-10-22 19:17 | NUR ---
GAVE REPORT TO SRIDEVI JIMENEZ. PATIENT ENDORSED IN STABLE CONDITION
--- NOTE | 2018-10-22 19:18 | NUR ---
RECEIVED PT SITTING UP ON BED WITH EYES CLOSED, EASILY AROUSABLE, AAOX3, FORGETFUL, VITAL SIGNS STABLE, ON O2 AT 1L VIA NASAL CANNULA, NO SOB NOTED, DENIES ANY PAIN, WITH RT GROIN HEMODIALYSIS CATHETER IN PLACE, DRESSING DRY AND INTACT, NO IV LINE AT THIS TIME, PT HARD STICK, WILL TRY TO ESTABLISH IV LINE LATER, PLAN OF CARE DISCUSSED, SAFETY MEASURES IN PLACE, SIDE RAILS UP AND BED ALARM ON, CALL LIGHT WITHIN REACH.
[2018-10-22 20:00] VITALS: BP 134/80
[2018-10-22] MEDS: PHENYTOIN 100 MG CAPER PO SCH (20:07)
[2018-10-22] MEDS: hydrALAZINE 25 MG TAB PO SCH (20:07)
[2018-10-22] MEDS: cloNIDine 0.1 MG TAB PO SCH (20:07)
[2018-10-22] MEDS: SUCRALFATE 1 GM TAB PO SCH (20:07)
[2018-10-22] MEDS: METOPROLOL 25 MG TAB PO SCH (20:08)
[2018-10-22] MEDS: BUDESONIDE 0.5 MG/2 ML NEBU INH SCH (20:10)
--- NOTE | 2018-10-22 20:20 | NUR ---
RECEIVED PATIENT ON 1L NASAL CANNULA, PULSE OX SAT 95%. SCHEDULED BREATHING TREATMENT ADMINISTERED. TOLERATED TX WELL, NO ADVERSE SIDE EFFECTS. ORAL CARE DONE POST TX. PLACED PATIENT BACK ON 1L NASAL CANNULA. NO RESPIRATORY DISTRESS NOTED AT THIS TIME. WILL CONTINUE TO MONITOR.
[2018-10-22] MEDS ORDERED: NON-FORMULARY ITEM (Hydralazine HCl (Hydralazine Hydrochloride) 25 MG) PO SCH (21:00)
--- NOTE | 2018-10-22 21:10 | NUR ---
UNABLE TO START IV LINE, ATTEMPTED TWICE BUT PT HARD STICK, COSTUME TECHNICIAN MARK MADE AWARE, SHE WILL TRY LATER, PT SLEEPING, ALL NEEDS ATTENDED.
--- NOTE | 2018-10-22 21:45 | NUR ---
PT VOIDED FREELY PER URINAL WITH 2O ML YELLOW URINE.
--- NOTE | 2018-10-22 22:10 | NUR ---
PT SEEN WITH NASAL CANNULA NOT IN PLACE, PUT BACK ON OXYGEN AND EDUCATED ABOUT THE NEED FOR OXYGEN, PT VERBALIZED UNDERSTANDING, ASSIST IN REPOSITIONING AND OFFLOAD PRESSURE AREAS, MONITORED CLOSELY.
--- NOTE | 2018-10-22 23:30 | NUR ---
NEW IV LINE INSERTED BY FOUNTAIN CLERK MARK TO LEFT WRIST GAUGE #22, SITE WRAPPED WITH ROLLED GAUZE, VITAL SIGNS STABLE, DENIES ANY PAIN, REINFORCE TO PT TO KEEP NASAL CANNULA IN PLACE, SAT DROPPED TO 90-91% ON ROOM AIR, PEANUT BUTTER AND JELLY SANDWICH PROVIDED, SIDE RAILS UP AND BED ALARM ON, CONTINUE TO MONITOR CLOSELY.
[2018-10-23] VITALS (7 sets, daily range): BP systolic 108–152; BP diastolic 55–80
--- NOTE | 2018-10-23 04:12 | NUR ---
PT COMPLAINING OF URINARY URGENCY BUT UNABLE TO VOID, BLADDER SOFT AND NONDISTENDED, DENIES ANY BLADDER PAIN, BLADDER SCAN DONE WITH 84ML RESULT, CONTINUE TO MONITOR CLOSELY.
[2018-10-23] MEDS ORDERED: LEVOTHYROXINE 0.025 MG TAB PO SCH (06:30)
--- NOTE | 2018-10-23 06:30 | NUR ---
PT COMPLAINING OF LEFT SHOULDER PAIN, MEDICATED WITH NORCO PO, DUE MEDS ADMINISTERED, PT WENT BACK TO SLEEP, MONITORED CLOSELY.
[2018-10-23 06:52] LABS: CARBON DIOXIDE 28.4 mmol/L (21-32); POTASSIUM 4.4 mmol/L (3.5-5.1)
[2018-10-23 06:56] LABS: CREATININE 5.1 mg/dL (0.7-1.3)
--- NOTE | 2018-10-23 07:19 | NUR ---
PT AWAKE, NO SIGNS OF DISTRESS, REPORT GIVEN TO SRIDEVI SANCHEZ FOR CONTINUITY OF CARE.
--- NOTE | 2018-10-23 07:20 | NUR ---
GOT BEDSIDE REPORT FROM SRIDEVI JIMENEZ. PATIENT ON TELE MONITOR AND STANDARD PRECAUTIONS IN PLACE. PATIENT AAOX3 AND ON 1 L O2 NC, NO DISTRESS NOTED. SACRAL REDNESS AND DRY SCAB ON LUE, OIL AND GAS FIELD TECHNICIAN. IV ON L WRIST 22 G, SALINE LOCK, IV ASYMPTOMATIC PATENT AND INTACT. FALL RISK PROTOCOL IN PLACE AND SIGN POSTED FOR NO VENIPUNCTURE/BP ON R ARM. AV SHUNT ON R ARM AND DIALYSIS CATHETER ON R GROIN. BED IN LOW POSITION, CALL LIGHT WITHIN REACH, SIDE RAILS X2 UP
[2018-10-23] MEDS ORDERED: PANTOPRAZOLE 40 MG TABEC PO SCH (07:30)
[2018-10-23] MEDS: BUDESONIDE 0.5 MG/2 ML NEBU INH SCH ×2 (07:35→19:01)
[2018-10-23] MEDS: SEVELAMER CARBONATE 800 MG TAB PO SCH ×3 (08:09→16:35)
[2018-10-23] MEDS: FERROUS SULFATE 325 MG TABEC PO SCH ×2 (08:09→16:34)
[2018-10-23] MEDS: CINACALCET 30 MG TAB PO SCH ×3 (08:10→16:35)
[2018-10-23] MEDS: cloNIDine 0.1 MG TAB PO SCH ×2 (08:11→20:37)
[2018-10-23] MEDS: METOPROLOL 25 MG TAB PO SCH ×2 (08:11→20:38)
[2018-10-23] MEDS: hydrALAZINE 25 MG TAB PO SCH ×2 (08:12→20:38)
--- NOTE | 2018-10-23 08:17 | NUR ---
ADMINISTERED SCHEDULED MEDS. PATIENT TOLERATED WELL AND NOW EATING BREAKFAST
[2018-10-23] MEDS ORDERED: LEVOTHYROXINE SODIUM 0.025 MG PO SCH (09:00)
[2018-10-23] MEDS ORDERED: ISOSORBIDE MONONITRATE 30 MG TABER PO SCH (09:00)
[2018-10-23] MEDS ORDERED: QUEtiapine FUMARATE 100 MG TAB PO SCH (09:00)
[2018-10-23] MEDS ORDERED: NON-FORMULARY ITEM (Isosorbide Mononitrate (Isosorbide Mononitrate ER) 1 TAB) PO SCH (09:00)
[2018-10-23] MEDS ORDERED: VIT-B COMP/VIT-C/FOLIC ACID 1 TAB PO SCH (09:00)
[2018-10-23] MEDS ORDERED: SERTRALINE 50 MG TAB PO SCH (09:00)
--- NOTE | 2018-10-23 09:40 | NUR ---
DR. WILLIS AT BEDSIDE
--- NOTE | 2018-10-23 12:10 | NUR ---
PATIENT SLEEPING. ON 1 L O2 NC, NO DISTRESS NOTED
--- NOTE | 2018-10-23 12:13 | NUR ---
PATIENT HAS BEEN SCREENED AND CATEGORIZED MODERATE NUTRITION RISK. PATIENT WILL BE SEEN WITHIN 3-5 DAYS OF ADMISSION. 10/24/18[address]OBERT BARRIOS [address]
--- NOTE | 2018-10-23 14:21 | NUR ---
PATIENT SLEEPING, ON 1 L O2 NC, NO COMPLAINTS AT THIS TIME
--- NOTE | 2018-10-23 14:56 | NUR ---
CALLED JAVED AT [facility] AND OBTAINED AUTH#[id number] FOR [facility] FOR PATIENT TO RETURN TO [facility] TODAY. CALLED NINA SHANNON AT [facility] [phone] AND LEFT HER A VM TO INFORM HER OF PATIENTS TRANSFER TODAY TO [facility]. CALLED [facility] AND SPOKE WITH KOBE AND PATIENT CAN GO TO ROOM 120A. CALL REPORT TO [phone]
--- NOTE | 2018-10-23 15:20 | NUR ---
PATIENT OK ON ROOM AIR, O2 SAT OF 97%. NASAL CANNULA NO LONGER NEEDED. RT AND SHIVA RAYGOZA AWARE
--- NOTE | 2018-10-23 15:23 | NUR ---
called [facility] @1515 spoke with Angeline, , scheduled a gurney transport for patient to return to [facility] to Room 120A, provided of [facility] authorization [id number]. Picked up scheduled at 7pm, Caesar Rubi RN assigned to pt notified of picked edge sewing machine operator time.
--- NOTE | 2018-10-23 15:31 | NUR ---
GAVE REPORT TO LEN FROM [facility] VIA TELEPHONE #[phone]. ANSWERED ALL QUESTIONS AND CONCERNS AND SHE IS AWARE PATIENT WILL GO TO ROOM 120 A. WILL CALL HER BACK TO LET HER KNOW PICKUP TIME FROM [facility]
--- NOTE | 2018-10-23 16:41 | NUR ---
ADMINISTERED SCHEDULED MEDS. PATIENT TOLERATED WELL. PHOTOS TAKEN OF SACRAL REDNESS AND SCABS ON L FA.
--- NOTE | 2018-10-23 18:53 | NUR ---
KAITLIN, NURSING HOME MANAGER, INFORMED ME THAT [facility] CHANGED PICKUP TIME TO 9 PM. CHARGE NURSE NORA ANNA
--- NOTE | 2018-10-23 19:00 | NUR ---
GAVE BEDSIDE REPORT TO SRIDEVI MONTGOMERY. PATIENT ENDORSED IN STABLE CONDITION, BREATHING TREATMENTS AT THIS TIME Addendum: 10/23/18 at 1914 by Joi Rubi RN ENDORSED TO ULISES THAT [facility] IS AT NURSE'S STATION FOR TRANSPORT. SRIDEVI MONTGOMERY AWARE OF [facility] PICKUP TIME AT 9:00 PM
--- NOTE | 2018-10-23 19:11 | NUR ---
RECEIVED PATIENT ON ROOM AIR, PULSE OX SAT 98%. SCHEDULED BREATHING TREATMENT ADMINISTERED. TOLERATED TX WELL. NO ADVERSE SIDE EFFECTS. ORAL CARE DONE POST TX. NO RESPIRATORY DISTRESS NOTED AT THIS TIME . WILL CONTINUE TO MONITOR.
--- NOTE | 2018-10-23 19:30 | NUR ---
RECEIVED BEDSIDE REPORT FROM SRIDEVI SANCHEZ, PATIENT IN BED CURRENTLY RECEIVING BREATHING TX, RT AT BEDSIDE. NOTED RIGHT AV SHUNT AND RIGHT GROIN HD CATH, NOTED LEFT FA IV, WILL DC UPON TRANSFER, ALL DC PAPERWORK SIGNED, AND REPORT GIVEN TO EDWARD HUTCHISON ACCORDING TO DAY SHIFT NURSE. ALL BELONGS PACK, PATIENT TO BE PICKED UP AT 2100 AND TRANSFEREE BACK TO [facility]
[2018-10-23] MEDS: SUCRALFATE 1 GM TAB PO SCH (20:37)
[2018-10-23] MEDS: PHENYTOIN 100 MG CAPER PO SCH (20:38)
--- NOTE | 2018-10-23 20:56 | NUR ---
DUE MEDICATIONS GIVEN, PATIENT TOLERATED WELL, D/C IV IN LEFT WRIST 22 G, CATH INTACT, APPLIED GAUZE AND TAPE TO STOP BLEEDING. REMOVED WRIST BANDS, ALL D/C PAPERWORK SIGNED, ALL BELONGING TOGETHER, PATIENT TRANSFERRED JOSE D TO [facility], PATIENT STABLE.
[2018-10-24] MEDS ORDERED: EPOETIN ALFA 10,000 UNITS/ML VIAL SUBQ SCH (09:00)
[2018-10-24] MEDS ORDERED: QUEtiapine FUMARATE 100 MG TAB PO SCH (09:00)
== END 2018-10-23 20:56 | DRG 470 ==
LOC: MED 06:35 → MTU 09:35
PROVIDERS: ADMIT Internal Medicine Pulmonary Disease; ATTEND Internal Medicine Pulmonary Disease
PROC: 5A1D70Z Performance of Urinary Filtration, Intermittent, Less than 6 Hours Per Day (ICD-10-PCS; principal; 2018-10-22)
DX: I12.0 Hypertensive chronic kidney disease with stage 5 chronic kidney disease or end stage renal disease (principal); N18.6 End stage renal disease; E44.0 Moderate protein-calorie malnutrition; E87.5 Hyperkalemia; D64.9 Anemia, unspecified; E03.9 Hypothyroidism, unspecified; F10.20 Alcohol dependence, uncomplicated; G40.909 Epilepsy, unspecified, not intractable, without status epilepticus; J45.909 Unspecified asthma, uncomplicated; M24.412 Recurrent dislocation, left shoulder; F41.9 Anxiety disorder, unspecified; F32.9 Major depressive disorder, single episode, unspecified; W18.39XA Other fall on same level, initial encounter; Z99.2 Dependence on renal dialysis; Z68.21 Body mass index [BMI] 21.0-21.9, adult; Z88.5 Allergy status to narcotic agent; Z79.899 Other long term (current) drug therapy; Z91.19 Patient's noncompliance with other medical treatment and regimen; Z91.15 Patient's noncompliance with renal dialysis; Z87.891 Personal history of nicotine dependence; Y93.89 Activity, other specified; Y92.89 Other specified places as the place of occurrence of the external cause; Y99.8 Other external cause status
CPT/HCPCS: 36415; 71045; 73030; 73502; 80048; 80053; 80305; 81001; 82948; 84100; 84484; 85025; 85610; 85730; 87081; 90935; 93005; 94640; 96374; 99291; G0482; J1644; J1815; J7613; J7626; Q0092